=== PATIENT | male | born 1975 | race Caucasian/White ===

== ENCOUNTER 2025-06-30 06:56 | Emergency (ER) | payer OTHER | END 2025-06-30 07:56 | disposition home or self-care (01) | LOC: JP.ED 06:56 | DX: J45.41 Moderate persistent asthma with (acute) exacerbation (principal); Z88.8 Allergy status to other drugs, medicaments and biological substances; Z91.048 Other nonmedicinal substance allergy status; Z79.899 Other long term (current) drug therapy | CPT/HCPCS: 94640; 99284; J7620; A9270-GY ==